=== PATIENT | female | born 1940 | race Caucasian/White ===

== ENCOUNTER 2019-10-24 16:03 | Inpatient (IN) | payer MEDICARE, OTHER ==
[2019-10-24] MEDS ORDERED: Sodium Chloride 0.9% 10 ML FLUSH Syringe IV PRN (17:00)
[2019-10-24] MEDS ORDERED: MEDICATION INTERVENTION MC SCH (17:30)
[2019-10-24 17:55] LABS: ALBUMIN 3.9 g/dL (3.5-5.0); ANION GAP 11.7 MEQ/L (5-15); BILIRUBIN,TOTAL 0.5 mg/dL (0.2-1.3); Calcium 9.7 mg/dL (8.4-10.2); Creatinine 1 2.15 mg/dL (0.52-1.04); Potassium 4.2 mmol/L (3.5-5.1); Total Protein 7.5 g/dL (6.3-8.2)
[2019-10-24 17:59] LABS: Hematocrit 40.6 % (35-47); Hemoglobin 12.8 gm/dl (12.0-16.0); Mean Corpuscular Hemoglobin 28.1 pg (26-32); Mean Corpuscular Hgb Concent. 31.5 g/dl (32-36); Mean Platelet Volume 9.5 fl (7.5-11.0); Platelet Count 252 K/mm3 (150-450); Red Blood Count 4.56 M/mm3 (4.1-5.4); Red Cell Distribution Width 15.7 % (11.5-14.0); White Blood Count 7.9 K/mm3 (4.0-10.5)
[2019-10-24] MEDS: Sodium Chloride 0.9% 1000 ML 1,000 ML IV SCH (18:26)
[2019-10-24] MEDS: BENADRYL 50 MG/ML IV SCH ×2 (18:27→23:36)
[2019-10-24] MEDS: solu-MEDROL 40 MG IV SCH ×2 (18:27→23:36)
[2019-10-24] MEDS: Sodium Chloride 0.9% 10 ML FLUSH Syringe IV SCH (21:12)
[2019-10-25 02:03] LABS: Appearance SLIGHTLY CLOUDY (CLEAR); Bilirubin NEGATIVE (NEGATIVE); Blood NEGATIVE Ery/ul (0-5); Epithelial Cells RARE /HPF (FEW); Glucose NEGATIVE (NEGATIVE); Ketones NEGATIVE (NEGATIVE); Leukocyte Esterase TRACE (NEGATIVE); Mucus SLIGHT /HPF (NEGATIVE); Nitrite NEGATIVE (NEGATIVE); Protein,Urine Dip NEGATIVE (Negative); Specific Gravity 1.015 (1.005-1.025); Urobilinogen NEGATIVE mg/dL (0-1); WBC 0-2 /HPF (0-5)
[2019-10-25] MEDS: BENADRYL 50 MG/ML IV SCH ×5 (04:03→20:15)
[2019-10-25] MEDS: Sodium Chloride 0.9% 1000 ML 1,000 ML IV SCH ×2 (04:33→16:59)
[2019-10-25] MEDS: Sodium Chloride 0.9% 10 ML FLUSH Syringe IV SCH ×2 (05:48→14:14)
[2019-10-25] MEDS: solu-MEDROL 40 MG IV SCH ×3 (05:50→18:21)
[2019-10-25 07:30] LABS: Absolute Neutrophil Ct (ANC) 4.46 (1.4-6.9); Basophil (Absolute #) 0 (0-0.4); Eosinophil % 0.2 % (0.00-5.0); Eosinophil (Absolute #) 0.01 (0-0.5); Hematocrit 40.5 % (35-47); Hemoglobin 12.6 gm/dl (12.0-16.0); Lymphocyte (Absolute #) 0.38 (1.0-4.6); Lymphocytes % 7.8 % (24.0-44.0); Mean Cell Volume 88.4 fl (78-100); Mean Corpuscular Hemoglobin 27.5 pg (26-32); Mean Corpuscular Hgb Concent. 31.1 g/dl (32-36); Mean Platelet Volume 9.4 fl (7.5-11.0); Monocyte (Absolute #) 0.03 (0.0-1.3); Monocytes % 0.6 % (0.0-12.0); Neutrophil % 91.4 % (36.0-66.0); Platelet Count 235 K/mm3 (150-450); Red Blood Count 4.58 M/mm3 (4.1-5.4); Red Cell Distribution Width 15.5 % (11.5-14.0); White Blood Count 4.9 K/mm3 (4.0-10.5)
[2019-10-25] MEDS ORDERED: Ativan 0.5 MG PO PRN (08:46)
[2019-10-25 09:42] LABS: ANION GAP 10.6 MEQ/L (5-15); Calcium 9.7 mg/dL (8.4-10.2); Creatinine 1 1.49 mg/dL (0.52-1.04); Potassium 5.2 mmol/L (3.5-5.1)
[2019-10-25] MEDS: Zyvox 600 MG IV PREMIX*** 300 ML IV SCH ×2 (09:56→22:25)
[2019-10-25] MEDS: Toprol Xl 100 MG PO SCH (09:56)
[2019-10-25] MEDS: Lasix 40 MG PO SCH (09:56)
[2019-10-25] MEDS ORDERED: BENAZEPRIL PO SCH (10:00)
[2019-10-25] MEDS ORDERED: [UNRECOGNIZED DRUG - OTHER] PO SCH (10:00)
[2019-10-25] MEDS ORDERED: AMLODIPINE BESYLATE PO SCH (10:00)
[2019-10-25] MEDS ORDERED: NORVASC 5 MG PO SCH (10:00)
[2019-10-25] MEDS: LOPRESSOR 5 MG/5 ML INJECTION IV ONE ×2 (12:12→13:44)
[2019-10-25] MEDS: Lotensin 10 MG PO SCH (17:01)
[2019-10-25] MEDS: Ativan 0.5 MG PO SCH ×2 (17:03→22:25)
[2019-10-26] MEDS: BENADRYL 50 MG/ML IV SCH ×3 (00:06→07:48)
[2019-10-26] MEDS: solu-MEDROL 40 MG IV SCH ×4 (00:06→18:17)
[2019-10-26] MEDS: Sodium Chloride 0.9% 1000 ML 1,000 ML IV SCH ×3 (05:03→21:48)
[2019-10-26 08:31] LABS: Absolute Neutrophil Ct (ANC) 9.75 (1.4-6.9); BASOPHIL % 0.1 % (0.0-0.4); Basophil (Absolute #) 0.01 (0-0.4); Eosinophil (Absolute #) 0 (0-0.5); Hematocrit 35.9 % (35-47); Hemoglobin 11.2 gm/dl (12.0-16.0); Lymphocyte (Absolute #) 0.53 (1.0-4.6); Mean Cell Volume 89.5 fl (78-100); Mean Corpuscular Hemoglobin 27.9 pg (26-32); Mean Corpuscular Hgb Concent. 31.2 g/dl (32-36); Mean Platelet Volume 9.5 fl (7.5-11.0); Monocyte (Absolute #) 0.32 (0.0-1.3); Neutrophil % 91.9 % (36.0-66.0); Platelet Count 224 K/mm3 (150-450); Red Blood Count 4.01 M/mm3 (4.1-5.4); Red Cell Distribution Width 15.6 % (11.5-14.0); White Blood Count 10.6 K/mm3 (4.0-10.5)
[2019-10-26] MEDS: Zyvox 600 MG IV PREMIX*** 300 ML IV SCH ×2 (09:06→21:50)
[2019-10-26] MEDS: Toprol Xl 100 MG PO SCH (09:07)
[2019-10-26] MEDS: Lotensin 10 MG PO SCH (09:07)
[2019-10-26] MEDS: Ativan 0.5 MG PO SCH (09:07)
[2019-10-26] MEDS: Lasix 40 MG PO SCH (09:07)
[2019-10-26 09:10] LABS: ANION GAP 10.1 MEQ/L (5-15); Calcium 8.9 mg/dL (8.4-10.2); Creatinine 1 1.48 mg/dL (0.52-1.04); Potassium 4.7 mmol/L (3.5-5.1)
[2019-10-26 10:46] LABS: Slide Review 1 YES
--- NOTE | 2019-10-26 13:02 | PCM.NOTE ---
Date and Time: 10/26/19 1252 Subjective Assessment: Patient reports the itching has stopped on her body at this time. She has had chronic problems with her lower legs and goes to PT for this on a regular basis but used a new fabric softener and developed and itchy rash over her upper legs and back. She had some hallucinations last night and this AM and saw things that other people did not see. Her AM nurse has held off on giving her ativan or benadryl this AM due to this. - Review of Systems Constitutional: No Symptoms Respiratory: No Symptoms Cardiac: No Symptoms Abdominal/Gastrointestinal: No Symptoms Skin: Pruritis, Dryness Psychological: Hallucinations Objective Exam General Appearance: no apparent distress, obese, other (talkative, pleasant) Skin Exam: other (very dry skin of back, shoulders, arms, trunk with some mild erythema of the dry patches; legs with wraps when I pulled these down, skin open in areas with serous drainage (superficial), erythema of lower legs to knees bilat) Respiratory Exam: normal breath sounds, lungs clear, No crackles/rales, No rhonchi, No wheezing Cardiovascular Exam: regular rate/rhythm, normal heart sounds, No friction rub, No gallop, No tachycardia Gastrointestinal/Abdomen Exam: soft, normal bowel sounds, No tenderness, No distention, No mass OBJECTIVE DATA Vital Signs: Vital Signs - 24 hr Temp Pulse Resp BP Pulse Ox 10/26/19 11:48 98.1 F 84 18 132/66 96 10/26/19 08:00 98.0 F 73 22 131/67 94 L 10/26/19 03:58 97.7 F 79 25 H 154/77 96 10/26/19 00:00 97.6 F 78 25 H 125/79 95 10/25/19 20:00 97.9 F 94 H 24 137/63 96 Pain Assessment - Last Documented Pain Intensity 0 Pain Scale Used 0-10 Pain Scale,FLACC Intake and Output: Intake & Output 10/24/19 10/25/19 10/26/19 10/27/19 06:59 06:59 06:59 06:59 Intake Total 2264 4161 600 Balance 2264 4161 600 Weight 110.3 kg Lab Results: Lab Results-Last 24 Hours 10/25/19 10/25/19 10/25/19 Range/Units 12:45 15:39 18:40 WBC (4.0-10.5) K/mm3 RBC (4.1-5.4) M/mm3 Hgb (12.0-16.0) gm/dl Hct (35-47) % MCV (78-100) fl MCH (26-32) pg MCHC (32-36) g/dl RDW (11.5-14.0) % Plt Count (150-450) K/mm3 MPV (7.5-11.0) fl Gran % (36.0-66.0) % Eos # (Auto) (0-0.5) Absolute Lymphs (auto) (1.0-4.6) Absolute Monos (auto) (0.0-1.3) Lymphocytes % (24.0-44.0) % Monocytes % (0.0-12.0) % Eosinophils % (0.00-5.0) % Basophils % (0.0-0.4) % Absolute Granulocytes (1.4-6.9) Basophils # (0-0.4) Sodium (137-145) mmol/L Potassium (3.5-5.1) mmol/L Chloride (98-107) mmol/L Carbon Dioxide (22-30) mmol/L Anion Gap (5-15) MEQ/L BUN (7-17) mg/dL Creatinine (0.52-1.04) mg/dL Estimated GFR ML/MIN Glucose (74-106) mg/dL Calcium (8.4-10.2) mg/dL Troponin I 0.015 0.020 0.025 (0.000-0.034) ng/mL TSH 3rd Generation (0.47-4.68) mIU/L Slides for Path Review 10/25/19 10/26/19 10/26/19 Range/Units 21:19 08:10 08:10 WBC 10.6 H (4.0-10.5) K/mm3 RBC 4.01 L (4.1-5.4) M/mm3 Hgb 11.2 L (12.0-16.0) gm/dl Hct 35.9 (35-47) % MCV 89.5 (78-100) fl MCH 27.9 (26-32) pg MCHC 31.2 L (32-36) g/dl RDW 15.6 H (11.5-14.0) % Plt Count 224 (150-450) K/mm3 MPV 9.5 (7.5-11.0) fl Gran % 91.9 H (36.0-66.0) % Eos # (Auto) 0 (0-0.5) Absolute Lymphs (auto) 0.53 L (1.0-4.6) Absolute Monos (auto) 0.32 (0.0-1.3) Lymphocytes % 5.0 L (24.0-44.0) % Monocytes % 3.0 (0.0-12.0) % Eosinophils % 0.0 (0.00-5.0) % Basophils % 0.1 (0.0-0.4) % Absolute Granulocytes 9.75 H (1.4-6.9) Basophils # 0.01 (0-0.4) Sodium 141 (137-145) mmol/L Potassium 4.7 (3.5-5.1) mmol/L Chloride 111 H (98-107) mmol/L Carbon Dioxide 25 (22-30) mmol/L Anion Gap 10.1 (5-15) MEQ/L BUN 34 H (7-17) mg/dL Creatinine 1.48 H (0.52-1.04) mg/dL Estimated GFR 36.1 ML/MIN Glucose 117 H (74-106) mg/dL Calcium 8.9 (8.4-10.2) mg/dL Troponin I 0.026 (0.000-0.034) ng/mL TSH 3rd Generation (0.47-4.68) mIU/L Slides for Path Review YES 10/26/19 Range/Units 10:25 WBC (4.0-10.5) K/mm3 RBC (4.1-5.4) M/mm3 Hgb (12.0-16.0) gm/dl Hct (35-47) % MCV (78-100) fl MCH (26-32) pg MCHC (32-36) g/dl RDW (11.5-14.0) % Plt Count (150-450) K/mm3 MPV (7.5-11.0) fl Gran % (36.0-66.0) % Eos # (Auto) (0-0.5) Absolute Lymphs (auto) (1.0-4.6) Absolute Monos (auto) (0.0-1.3) Lymphocytes % (24.0-44.0) % Monocytes % (0.0-12.0) % Eosinophils % (0.00-5.0) % Basophils % (0.0-0.4) % Absolute Granulocytes (1.4-6.9) Basophils # (0-0.4) Sodium (137-145) mmol/L Potassium (3.5-5.1) mmol/L Chloride (98-107) mmol/L Carbon Dioxide (22-30) mmol/L Anion Gap (5-15) MEQ/L BUN (7-17) mg/dL Creatinine (0.52-1.04) mg/dL Estimated GFR ML/MIN Glucose (74-106) mg/dL Calcium (8.4-10.2) mg/dL Troponin I (0.000-0.034) ng/mL TSH 3rd Generation 0.192 L (0.47-4.68) mIU/L Slides for Path Review Assessment/Plan (1) Cellulitis Current Visit: Yes Status: Acute Qualifiers: Site of cellulitis: extremity Site of cellulitis of extremity: lower extremity Laterality: unspecified laterality Qualified Code(s): L03.119 - Cellulitis of unspecified part of limb Assessment & Plan: Continue linezolid. She follows with PT and primary care doctor as outpatient as well. Code(s): L03.90 - CELLULITIS, UNSPECIFIED (2) Dry skin dermatitis Current Visit: Yes Status: Acute Assessment & Plan: Continue with IV steroids. Seems to be improving based on improved symptoms. TSH was actually low so checking T3, T4. Asked nurse about cream to use on this. Patient plans not to use new fabric softener ever again. Code(s): L85.3 - XEROSIS CUTIS (3) Hallucination, drug-induced Current Visit: Yes Status: Acute Assessment & Plan: May have been due to combination of steroids, benadryl and ativan. Only IV steroids continued at this time. Will continue to monitor. Code(s): F19.951 - OTH PSYCHOACTV SUB USE, UNSP W PSYCH DISORDER W HALLUCIN (4) Sinus tachycardia Current Visit: Yes Status: Acute Assessment & Plan: Resolved now. She required IV metoprolol yesterday afternoon. Will continue with oral metoprolol today. Code(s): R00.0 - TACHYCARDIA, UNSPECIFIED (5) Essential hypertension Current Visit: Yes Status: Acute Assessment & Plan: Continue current medication. Code(s): I10 - ESSENTIAL (PRIMARY) HYPERTENSION (6) DVT prophylaxis Current Visit: Yes Status: Acute Assessment & Plan: Start lovenox; mechanical contraindicated due cellulitis/wounds of lower legs. Code(s): Z29.9 - ENCOUNTER FOR PROPHYLACTIC MEASURES, UNSPECIFIED
[2019-10-26] MEDS: ENOXAPARIN SODIUM SQ SCH (13:55)
[2019-10-26] MEDS ORDERED: ENOXAPARIN SODIUM SQ SCH (14:00)
[2019-10-26] MEDS ORDERED: HALDOL 1 MG PO ONE (23:40)
[2019-10-27] MEDS: solu-MEDROL 40 MG IV SCH ×2 (00:29→05:09)
[2019-10-27] MEDS ORDERED: Haldol 5 MG IM ONE (05:48)
[2019-10-27] MEDS: Lasix 40 MG PO SCH (09:23)
[2019-10-27] MEDS: Lotensin 10 MG PO SCH (09:23)
[2019-10-27] MEDS: Toprol Xl 100 MG PO SCH (09:23)
[2019-10-27] MEDS: ENOXAPARIN SODIUM SQ SCH (09:23)
[2019-10-27] MEDS: Zyvox 600 MG IV PREMIX*** 300 ML IV SCH (09:24)
[2019-10-27] MEDS ORDERED: Ocuvite Tablet PO SCH (10:00)
[2019-10-27] MEDS ORDERED: Levofloxacin 250MG Tablet PO SCH (10:00)
[2019-10-27] MEDS: ZYVOX PO SCH ×2 (11:04→21:52)
[2019-10-27] MEDS: KENALOG 0.1% CREAM 15 GM TP SCH ×2 (13:30→20:02)
--- NOTE | 2019-10-27 14:09 | PCM.NOTE ---
Date and Time: 10/27/19 1403 Subjective Assessment: Her nurse called me two times saying patient was very agitated. She pulled her IV out the first time. The nurse has documented the concerns in the chart. Patient reports to me she saw bed move. I was concerned for the patient's safety. She tells me this AM that she plans to drive to [place] to find her lost aunt. She is not sure where her car is and wants it brought around to her. Her biological granddaughter (adopted daughter) (Ingrid White) came in today and agrees that she is confused and states Meli had sent her a message asking her to go to [place] with her. Patient lives a lone.Her daughter states she has been under a lot of stress lately. I have explained to patient that I do not feel comfortable with her driving or staying by herself at this time. In case patient decides she wants to leave, I did fill out [facility] papers that could be taken to the celery cutter today if needed. Her granddaughter would also like her to stay here. The patient reports her rash is better. Patient reports she does not want to stay. - Review of Systems Constitutional: No Symptoms Psychological: Hallucinations, Other (Patient reports she knows she had hallucinations two nights ago but does not remember having them last night. States she just wants to gohome and that itching is better. Further review of systems unobtainable due to patient's agitation.) Objective Exam General Appearance: other (Patient sitting in chair at door way with coat on, cane with her and belongings gathered up. She is agitated so futher physical exam was not attempted. She is oriented to person, place. Says year is 20,020 then says 2019. When asked who the president of the [place] is, she states she does not like the president and will not say his name.) OBJECTIVE DATA Vital Signs: Vital Signs - 24 hr Temp Pulse Resp BP Pulse Ox 10/27/19 13:00 97.8 F 86 20 140/82 97 10/27/19 09:30 97.8 F 70 22 137/71 96 10/27/19 07:18 22 10/27/19 04:00 97.5 F 72 20 156/74 97 10/27/19 00:00 20 10/26/19 20:00 98.0 F 129 H 20 138/64 94 L 10/26/19 16:00 97.8 F 69 18 188/81 98 Pain Assessment - Last Documented Pain Intensity 0 Pain Scale Used 0-10 Pain Scale Intake and Output: Intake & Output 10/25/19 10/26/19 10/27/19 10/28/19 06:59 06:59 06:59 06:59 Intake Total 2264 4161 1894 480 Balance 2264 4161 1894 480 Weight 110.3 kg Assessment/Plan (1) Delirium Current Visit: Yes Status: Acute Assessment & Plan: Ativan and benadryl were stopped yesterday. I stopped her steroids today due to the condition of patient. She took out her IV and the steroids may be contributing to her delirium so holding off at this time. Code(s): R41.0 - DISORIENTATION, UNSPECIFIED (2) UTI (urinary tract infection) Current Visit: Yes Status: Acute Assessment & Plan: Patient has UTI per culture report. Start levofloxacin 250 mg po daily today. Patient did take that this AM. Code(s): N39.0 - URINARY TRACT INFECTION, SITE NOT SPECIFIED (3) Cellulitis Current Visit: Yes Status: Acute Qualifiers: Site of cellulitis: extremity Site of cellulitis of extremity: lower extremity Laterality: unspecified laterality Qualified Code(s): L03.119 - Cellulitis of unspecified part of limb Assessment & Plan: Linezolid changed to oral. Code(s): L03.90 - CELLULITIS, UNSPECIFIED (4) Dry skin dermatitis Current Visit: Yes Status: Acute Assessment & Plan: Steroid cream ordered instead of oral steroids. Code(s): L85.3 - XEROSIS CUTIS (5) Hallucination, drug-induced Current Visit: Yes Status: Acute Assessment & Plan: May be due to medication, infection, combination, or delirium from being in ICU/ hospital. Code(s): F19.951 - OTH PSYCHOACTV SUB USE, UNSP W PSYCH DISORDER W HALLUCIN (6) Sinus tachycardia Current Visit: Yes Status: Resolved Code(s): R00.0 - TACHYCARDIA, UNSPECIFIED (7) Essential hypertension Current Visit: Yes Status: Acute Assessment & Plan: Continue home medication. Code(s): I10 - ESSENTIAL (PRIMARY) HYPERTENSION (8) DVT prophylaxis Current Visit: Yes Status: Acute Assessment & Plan: Lovenox discontinued due to patient's agitation. Code(s): Z29.9 - ENCOUNTER FOR PROPHYLACTIC MEASURES, UNSPECIFIED
[2019-10-27] MEDS ORDERED: TYLENOL 325 MG PO PRN (16:17)
[2019-10-28 04:25] VITALS: PULSE 77
[2019-10-28 08:11] VITALS: BP 164/81; O2SAT 95
--- NOTE | 2019-10-28 09:26 | PCM.DCORD ---
- Discharge Discharge Date: 10/28/19 Disposition: Home, Self-Care Condition: Fair Prescriptions: New Triamcinolone 0.1% Cream [Kenalog 0.1% Cream 15 gm] 10 gm TP BID #240 gr Levofloxacin [Levofloxacin 250MG Tablet] 250 mg PO DAILY #5 tab Beta-Carotene(A) W-C & E/Min [Ocuvite Tablet] 1 tab PO QAM tablet Acetaminophen 325 mg [Tylenol 325 mg] 650 mg PO Q4H PRN PRN tablet PRN Reason: Pain And/Or Fever Linezolid [Zyvox] 600 mg PO BID #14 tablet Continue Furosemide 40 mg PO DAILY Loratadine 10 mg PO DAILY Metoprolol Succinate 100 mg PO DAILY Amlodipine Besylate/Benazepril [Amlodipine-Benazepril 10-40 mg] 1 cap PO DAILY Discontinued Prednisone 10 mg [Deltasone 10 mg] 10 mg PO DAILY Diphenhydramine HCl [Banophen] 25 mg PO Q4H Cephalexin Mh 500 mg [Keflex 500 mg] 500 mg PO TID Benazepril HCl 40 mg PO DAILY Follow up with: MARTHA ARRIAGA MD [Primary Care Provider] - 1 Week
--- NOTE | 2019-10-28 14:52 | DS ---
DISCHARGE DIAGNOSES: 1) DELIRIUM NOW RESOLVED. 2) URINARY TRACT INFECTION. 3) CELLULITIS OF LOWER EXTREMITY. 4) DRY SKIN DERMATITIS. 5) HALLUCINATION NOW RESOLVED MOST LIKELY DRUG INDUCED. 6) SINUS TACHYCARDIA. 7) HYPERTENSION. DISCHARGE PHYSICAL EXAMINATION: VITALS: Temperature current 98.5F, temperature max 98.5F, heart rate 77, respiratory rate 18, blood pressure 164/81. Discharge weight 110.3 kg. Oxygen saturation 95% on room air. GENERAL: The patient was sitting up in her chair in no acute distress. Her daughter, son and nephew were at the bedside. The patient states she was feeling well and would like to go home. CVS: She has a regular rate and rhythm. No murmurs, gallops or rubs are appreciated. CHEST: Clear to auscultation bilaterally. No crackles or wheezes. ABDOMEN: Soft, nontender, nondistended with normal bowel sounds. EXTREMITIES: No clubbing, cyanosis or edema. SKIN: On her back the rash had mostly resolved and the skin was not as dry. She continued to have a rash on her upper legs bilaterally and the cellulitis continued on her lower legs with some areas of skin with no epidermis there and mild erythema. No active drainage. NEURO: She was alert, oriented x3. HOSPITAL COURSE: 1) DELIRIUM NOW RESOLVED: Monday night she started to have some hallucinations stating that she was seeing [place] and seeing benches moving. The next night she was even more agitated and pulled out her IV with continued hallucinations as documented by her nurse. She required one dose of oral Haldol and one dose of IM Haldol that night. The last night of her hospital stay her son stayed with her and stated no hallucinations. It was felt that the patient was safe to go home. She does live alone but has family that checks in on her frequently and her family was at the bedside and was comfortable with her going home. 2) URINARY TRACT INFECTION: She had UA that had looked good but then a urine culture that grew Pseudomonas and so on 10/27/2019 she was started on levofloxacin 250 mg daily. The plan was to finish a seven day course of that. 3) CELLULITIS: She received wound care every for this. I have asked nursing to put some barrier cream on this as her skin was sticking to the [place]. She was initially started on vancomycin for this and changed to linezolid when she pulled her IV out and I wrote for a continued course linezolid and to follow up again with wound care. 4) DRY SKIN DERMATITIS: She had initially been on IV Ativan, IV Benadryl as well as IV steroids. It was thought that some of her hallucinations may be medication induced so Ativan and Benadryl were stopped on Monday. She continued to have hallucinations so the steroids were stopped the next day. Her rash was much better. I changed to steroid cream and this seems to be working. I will plan to discharge her on steroid cream. 5) HALLUCINATIONS DRUG INDUCED: Again, she will need to be followed as an outpatient. There was some concern for possible dementia but at this time the patient is safe to take care of herself at home and no longer having hallucinations. 6) SINUS TACHYCARDIA: She had an episode of high heart rate, had sinus tachycardia on Monday treated by Dr. Wan with IV metoprolol. She was continued on her oral dose of metoprolol. 7) HYPERTENSION: Her blood pressure was well controlled. DISCHARGE MEDICATIONS: Please see the discharge order. DISPOSITION: The patient was discharged to home in fair condition to follow up with her primary care doctor, Dr. Hathaway, as scheduled this .
== END 2019-10-28 11:25 | disposition home or self-care (01) | DRG 948 ==
LOC: MED SURG 16:09 → OBSVTOIN 10-25 12:40 → ICU 10-25 15:20 → MED SURG 10-26 16:00
PROVIDERS: ADMIT Family Medicine; ATTEND Family Medicine
DX: R41.0 Disorientation, unspecified (principal); L03.116 Cellulitis of left lower limb; L03.115 Cellulitis of right lower limb; N39.0 Urinary tract infection, site not specified; R42 Dizziness and giddiness; R44.3 Hallucinations, unspecified; L85.3 Xerosis cutis; T50.915A Adverse effect of multiple unspecified drugs, medicaments and biological substances, initial encounter; R00.0 Tachycardia, unspecified; I10 Essential (primary) hypertension; B96.5 Pseudomonas (aeruginosa) (mallei) (pseudomallei) as the cause of diseases classified elsewhere; Z79.899 Other long term (current) drug therapy; L29.9 Pruritus, unspecified
CPT/HCPCS: 36415; 80048; 80053; 81001; 84443; 84484; 85025; 85027; 87040; 87077; 87086; 87186; 93005; 93268; 97161; 97530; G0378; A6457; J1200; J1630; J1650; J2020; J2920; A9270-GY